=== PATIENT | female | born 1965 | race Two or more races ===

== ENCOUNTER 2020-03-25 06:00 | Day surgery (SDC) | payer OTHER ==
[~2020-03-25 06:00] MED LIST: CELEXA40 MG PO
[2020-03-25] MEDS ORDERED: PERCOCET 5-3251 EACH PO (09:12)
== END 2020-03-25 11:00 | disposition home or self-care (01) ==
LOC: CIR.AMB 06:00 → ADM 10:15 → CIR.AMB 10:15
PROVIDERS: ATTEND Surgery
DX: E06.3 Autoimmune thyroiditis (principal)